=== PATIENT | male | born 1990 | race Caucasian/White ===

== ENCOUNTER 2017-07-30 14:49 | Observation (INO) ==
[2017-07-30] MEDS ORDERED: DIPHTHERIA/TETANUS ADULT VACCINE 0.5 ML VIAL IM ONE (15:02)
[2017-07-30 15:39] LABS: ABG Base Excess 0.6 MMOL/L (-2.5-2.5); ABG HCO3 24.9 MMOL/L (20-26); ABG Oxygen Saturation 96.9 % (95-100); ABG PCO2 35.4 MM HG (35-48); ABG PH 7.441 (7.35-7.45); ABG PO2 83.8 MM HG (80-95); ABG TCO2 19.7 MMOL/L (23-27); Allen Test Positive; Pt O2 Delivery Device Room Air
[2017-07-30 15:53] LABS: Basophils # 0.1 10*3/uL (0.0-0.2); Basophils % 0.4 % (0.0-0.8); Eosinophils # 0.2 10*3/uL (0.0-0.87); Eosinophils % 0.9 % (0.00-10.9); Hemoglobin 17.8 GM/DL (14.0-18.0); Immature Granulocytes Absolute 0.19 #; Lymphocytes # 1.8 10*3/uL (1.4-4.0); Lymphocytes % 9.5 % (21.2-54.2); Mean Corpuscular HGB Conc 36.3 GM/DL (32-36); Mean Corpuscular Hemoglobin 32 PG (27-34); Mean Corpuscular Volume 87.1 FL (87-102); Monocytes # 1.6 10*3/uL (0.11-0.8); Monocytes % 8.1 % (1.7-12.7); Neutrophils # 15.5 10*3/uL (1.4-7.4); Neutrophils % 80.1 % (38.7-73.9); Platelet Count 194 T/CUMM (130-400); Red Blood Count 5.64 MC/CUMM (3.8-5.5); Red Cell Distribution Width 13.2 % (9.3-17.3); White Blood Count 19.3 T/CUMM (4-12)
[2017-07-30 15:55] LABS: Hematocrit 49.1 VOL% (42.0-52.0)
[2017-07-30 16:07] LABS: INR 1.2; PT Patient Result 12.7 SECS; Partial Thromboplastin Time 28.2 SECS (0-40)
[2017-07-30 16:11] LABS: Barbiturates Screen,Urine Negative (Negative); Benzodiazepines Screen,Urine Negative (Negative); Cannabinoid Screen,Urine Negative (Negative); Opiate Screen,Urine Negative (Negative); Phencyclidine Screen,Urine Negative (Negative)
[2017-07-30 16:19] LABS: Albumin 4.7 G/DL (3.4-5.0); Calcium 9.8 MG/DL (8.5-10.1); Osmolality,Calculated 272.7 MOS/KG (273-304); Potassium 3.9 MMOL/L (3.5-5.1); Total Protein 8.4 G/DL (6.4-8.3)
[2017-07-30] MEDS ORDERED: LIDOCAINE 1%/EPI INJ 20 ML VIAL ONE (18:11)
[2017-07-30 18:25] LABS: Lactic Acid 1.9 MMOL/L (0.4-2.0)
[2017-07-30] MEDS ORDERED: PROMETHAZINE 25 MG/1 ML VIAL IM PRN (19:26)
[2017-07-30] MEDS ORDERED: ACETAMINOPHEN 325 MG TABLET PO PRN (19:26)
[2017-07-30] MEDS ORDERED: ONDANSETRON 4 MG/2 ML VIAL IV PRN (19:26)
[2017-07-30] MEDS: HYDROmorphone 2 MG/1 ML VIAL IV PRN (19:43)
[2017-07-30] MEDS: LACTATED RINGERS 1,000 ML IV SCH (19:56)
[2017-07-30] MEDS ORDERED: INFLUENZA VIRUS VACCINE 0.5 ML SYRINGE IM ONE (20:08)
[2017-07-30] MEDS ORDERED: PNEUMOCOCCAL VACCINE (23 VALENT) 0.5 ML VIAL IM ONE (20:10)
[2017-07-30] MEDS: KETOROLAC 30 MG/1 ML VIAL IV SCH (21:36)
[2017-07-31] MEDS: HYDROmorphone 2 MG/1 ML VIAL IV PRN ×3 (01:03→16:03)
[2017-07-31] MEDS: KETOROLAC 30 MG/1 ML VIAL IV SCH ×3 (02:48→14:36)
[2017-07-31] MEDS: LACTATED RINGERS 1,000 ML IV SCH (02:52)
[2017-07-31 07:48] LABS: Basophils % 0.4 % (0.0-0.8); Eosinophils # 0.3 10*3/uL (0.0-0.87); Eosinophils % 2.9 % (0.00-10.9); Hematocrit 44.4 VOL% (42.0-52.0); Hemoglobin 15.9 GM/DL (14.0-18.0); Immature Granulocytes % 0.4 %; Immature Granulocytes Absolute 0.04 #; Lymphocytes # 1.6 10*3/uL (1.4-4.0); Mean Corpuscular HGB Conc 35.8 GM/DL (32-36); Mean Corpuscular Hemoglobin 32 PG (27-34); Mean Corpuscular Volume 89.2 FL (87-102); Mean Platelet Volume 10.8 FL (9.6-12.0); Monocytes # 1.2 10*3/uL (0.11-0.8); Monocytes % 12.3 % (1.7-12.7); Neutrophils # 6.3 10*3/uL (1.4-7.4); Platelet Count 171 T/CUMM (130-400); Red Blood Count 4.98 MC/CUMM (3.8-5.5); Red Cell Distribution Width 13.3 % (9.3-17.3); White Blood Count 9.5 T/CUMM (4-12)
[2017-07-31 08:17] LABS: Calcium 8.3 MG/DL (8.5-10.1); Osmolality,Calculated 276.4 MOS/KG (273-304); Potassium 4.3 MMOL/L (3.5-5.1)
[2017-07-31] MEDS ORDERED: PANTOPRAZOLE 40 MG TABLET PO SCH (09:00)
[2017-07-31] MEDS ORDERED: oxyCODONE/ACETAMINOPHEN 5-325 MG TABLET PO PRN (10:53)
[2017-07-31] MEDS ORDERED: BACITRACIN OINT 0.9 GM PACK TOP SCH (16:00)
[2017-07-31 17:03] VITALS: BP 113/56
[2017-07-31] MEDS ORDERED: ENOXAPARIN 40 MG/0.4 ML SYRINGE SUBCUT SCH (21:00)
== END 2017-07-31 17:30 | disposition home or self-care (01) ==
LOC: N.EDINP 14:49 → N.ED 14:49 → N.EDINP 18:41 → N.3E 18:50
PROVIDERS: ADMIT Surgery; ATTEND Surgery